=== PATIENT | male | born 2000 | race Caucasian/White ===

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

== ENCOUNTER 2022-12-22 21:08 | Emergency (ER) | payer SELFPAY ==
[2022-12-22 21:10] VITALS: BP 140/76; PULSE 104; RESP 16; TEMP 36.8; O2SAT 98; BMI 32.5
--- NOTE | 2022-12-22 21:27 | HMH.EDGENADL ---
Discharge Plan Disposition Patient Disposition: Home, Self-Care Condition: Good Chief Complaint: Extremity Injury, Upper Prescriptions Prescriptions: No Action metoclopramide HCl [Reglan] 10 mg tablet 10 mg PO Q6H PRN (Reason: nausea and vomiting) Qty: 30 3RF Rx Instructions: use sparingly cefdinir 300 mg capsule 300 mg PO BID 10 Days Qty: 20 0RF pantoprazole 40 mg tablet,delayed release (DR/EC) See Rx Instructions .ROUTE .COMPLEX Qty: 90 0RF Dose Instruction: TAKE 1 TABLET BY MOUTH ONCE DAILY FOR GASTROPARESIS Rx Instructions: TAKE 1 TABLET BY MOUTH ONCE DAILY FOR GASTROPARESIS Referrals Follow up/Referrals: Laura Null PA [Primary Care Provider] - See instructions Clinical Impressions Clinical Impression: Contusion of hand including fingers Instructions Patient Instructions: DI for Hand Pain Discharge ED Provider: Ramo Delcid General Adult HPI General Chief complaint: Extremity Injury, Upper Stated complaint: ao 12/20@2300 INJURED r HAND Time Seen by Provider: 12/22/22 21:17 Mode of Arrival: Ambulatory Source of Information: Patient Limitations: No Limitations Description of Symptoms (Recalled from ER Triage Doc. by RN): pt states that he was walking up the stairs and tripped when his boot got caught and that he fell on his right hand, had his phone in his hand and unintentionally punched the porch. the pt has redness and swelling in the right hand on the 2 last knuckles History of Present Illness HPI narrative: Patient has no significant past medical history. pt states that he was walking up the stairs and tripped when his boot got caught and that he fell on his right hand, had his phone in his hand and unintentionally punched the porch. the pt has redness and swelling in the right hand on the 2 last knuckles. Patient notes pain all day today with flexion extension of his fourth and fifth digits, thus he decided come into the ED for evaluation Related Data Previous Rx's Medication Instructions Recorded metoclopramide HCl 10 mg tablet 10 mg PO Q6H PRN nausea and 08/08/21 (Reglan) vomiting #30 tabs cefdinir 300 mg capsule 300 mg PO BID 10 days #20 caps 06/18/22 pantoprazole 40 mg tablet,delayed See Rx Instructions .Route 10/30/22 release .COMPLEX #90 tabs Allergies Allergy/AdvReac Type Severity Reaction Status Date / Time No Known Allergies Allergy Verified 06/18/22 14:39 [facility] Disclaimer: The information contained in this section may have been updated after the patient was seen, as this information can be updated by other users. Social History Smoking Status: Current every day smoker tobacco type: cigarettes packs per day: 1 alcohol intake: current substance use type: denies use current occupational status: employed Travel in the last 8 weeks: None household members: family housing: house caffeine: Yes ROS Obtained: Yes All systems reviewed & no additional complaints except as documented Physical Exam General General appearance: alert and in no apparent distress Head Head exam: atraumatic, normocephalic and normal inspection Eye Eye exam: Present normal appearance, PERRL and EOMI; Absent scleral icterus or nystagmus ENT ENT exam: Present normal exam, mucous membranes moist and normal external ear exam Neck Neck exam: Present normal inspection, full ROM and trachea midline Chest Chest inspection: Present normal inspection and symmetric chest wall rise; Absent tenderness Respiratory Respiratory exam: Present normal lung sounds bilaterally; Absent respiratory distress, wheezes or accessory muscle use Cardiovascular Cardiovascular exam: Present regular rate, normal rhythm and normal heart sounds Abdominal Exam Abdominal exam: Present soft; Absent distention, tenderness, guarding, rebound, rigidity, trauma, ascites or pulsatile mass exam: Present deferred Ex
--- NOTE | 2022-12-22 21:28 | XR_ITS ---
PROCEDURE INFORMATION: Exam: XR Right Hand Exam date and time: 12/22/2022 9:31 PM Age: 22 years old Clinical indication: Finger(s); Right; Patient HX: Pain in ring finger and pinky; Additional info: Right hand injury TECHNIQUE: Imaging protocol: Radiologic exam of the right hand. Views: 3 or more views. COMPARISON: No relevant prior studies available. FINDINGS: Bones/joints: No acute fracture or malalignment. Soft tissues: Unremarkable. IMPRESSION: No acute findings.
--- NOTE | 2022-12-22 22:19 | PC.NURSE ---
pt assessed sitting on stretcher alert, responsive no complaints nor requests at this time
[2022-12-22 22:38] VITALS: BP 123/72; PULSE 85; RESP 20; O2SAT 98
[2022-12-22 22:39] VITALS: BP 123/72; PULSE 86; RESP 16; TEMP 36.8; O2SAT 98
== END 2022-12-22 22:50 | disposition home or self-care (01) ==
PROVIDERS: Emergency Provider Emergency Medicine; PCP Physician Assistant
DX: S60.221A Contusion of right hand, initial encounter (principal); W01.198A Fall on same level from slipping, tripping and stumbling with subsequent striking against other object, initial encounter; F17.210 Nicotine dependence, cigarettes, uncomplicated
CPT/HCPCS: 73130; 99283

== ENCOUNTER 2023-01-12 05:37 | Emergency (ER) | payer SELFPAY ==
[2023-01-12] VITALS (7 sets, daily range): BP systolic 112–151; BP diastolic 55–85; PULSE 63–105; RESP 16–20; TEMP 36.3–36.7; O2SAT 96–100; BMI 33.9
--- NOTE | 2023-01-12 05:48 | PC.NURSE ---
in room talking with patient at this time.
--- NOTE | 2023-01-12 05:49 | PC.NURSE ---
pt alert,oriented, vss. md at bedside evaluating
--- NOTE | 2023-01-12 05:49 | [facility].EDGENADL ---
Discharge Plan Disposition Patient Disposition: Home, Self-Care Condition: Good Prescriptions Prescriptions: No Action No Known Home Medications Referrals Follow up/Referrals: Laura Null PA [Primary Care Provider] - See instructions Clinical Impressions Clinical Impression: Marijuana intoxication Instructions Patient Instructions: DI for Drug Overdose in Adults Discharge ED Provider: Bertha Hamilton Adult HPI <Bertha Hamilton DO - Last Filed: 01/12/23 06:53> General Chief complaint: Overdose Stated complaint: Delta 8 pen heart racing,throat closing Time Seen by Provider: 01/12/23 05:47 History of Present Illness HPI narrative: This patient is a 22-year-old male who denies significant past medical history presenting to the emergency department for evaluation after trying a delta 8 pen for the first time. He states that he feels like his heart is racing, his throat is dry, he is having a hard time catching his breath, and he feels very anxious. He states that he took approximately 8-10 hits of the pen, as he did not feel anything at first. This happened 1 hour prior to arrival. He states that he was feeling fine prior to that, but also had been drinking alcohol and using his nicotine vape. He denies any other concerns or complaints at this time. Related Data Home Medications Medication Instructions Recorded Confirmed No Known Home Medications 01/12/23 01/12/23 Allergies Allergy/AdvReac Type Severity Reaction Status Date / Time No Known Allergies Allergy Verified 06/18/22 14:39 PFSH <Bertha Hamilton DO - Last Filed: 01/12/23 06:53> PFS Disclaimer: The information contained in this section may have been updated after the patient was seen, as this information can be updated by other users. Social History Smoking Status: Current every day smoker tobacco type: cigarettes packs per day: 1 alcohol intake: current substance use type: denies use current occupational status: employed Travel in the last 8 weeks: None household members: family housing: house caffeine: Yes <Bertha Hamilton DO - Last Filed: 01/12/23 06:53> ROS Obtained: Yes All systems reviewed & no additional complaints except as documented Physical Exam <Bertha Hamilton DO - Last Filed: 01/12/23 06:53> General General appearance: alert and anxious Comment: Very anxious appearing, hyperventilating. Head Head exam: atraumatic and normocephalic Eye Eye exam: Present normal appearance, PERRL and EOMI ENT ENT exam: Present normal exam, normal oropharynx, mucous membranes moist and normal external ear exam Neck Neck exam: Present normal inspection, full ROM and trachea midline; Absent tenderness Chest Chest inspection: Present normal inspection and symmetric chest wall rise; Absent tenderness Respiratory Respiratory exam: Present normal lung sounds bilaterally; Absent respiratory distress, wheezes, stridor or accessory muscle use Cardiovascular Cardiovascular exam: Present normal rhythm and tachycardia Abdominal Exam Abdominal exam: Present soft; Absent distention, tenderness or guarding Extremities Exam Extremities exam: Present normal inspection, full ROM and normal capillary refill; Absent tenderness or edema Back Exam Back exam: Present normal inspection and full ROM; Absent tenderness Neurological Exam Neurological exam: Present alert, oriented X3, CN II-XII intact and normal gait; Absent motor sensory deficit Psychiatric Psychiatric exam: Present anxious Skin Skin exam: Present warm and dry Medical Decision Making <Bertha Hamilton, DO - Last Filed: 01/12/23 06:53> Medical Records Medical records reviewed: Yes I reviewed the patient's medical records. Rell Inquiry Pt receiving controlled substance: No Vital Signs: 01/12/23 05:40 01/12/23 06:00 01/12/23 06:31 Temperature 97.4 F L Temperature Source Oral Pul
--- NOTE | 2023-01-12 05:53 | ECG_ITS ---
APPROVED REPORT Exam: Resting ECG HR:111 bpm ECG Measurements Heart Rate 111 AXES SD 116 P 62 QRSd 96 QRS 80 QT 357 T 19 QTc 422 Conclusion SINUS TACHYCARDIA WITH SHORT SD INTERVAL NONSPECIFIC T-WAVE ABNORMALITY ABNORMAL RHYTHM ECG UNCONFIRMED REPORT Electronically signed by : Nghia Henning MD 01/12/2023 20:01:22
--- NOTE | 2023-01-12 06:06 | PC.NURSE ---
assisted patient with finding a position of comfort.
--- NOTE | 2023-01-12 06:50 | PC.NURSE ---
in room talking with patient at this time.
--- NOTE | 2023-01-12 07:21 | PC.NURSE ---
pt sleeping at this time, vss
== END 2023-01-12 08:20 | disposition home or self-care (01) ==
PROVIDERS: Emergency Provider Emergency Medicine; PCP Physician Assistant
DX: T40.711A Poisoning by cannabis, accidental (unintentional), initial encounter (principal); R00.0 Tachycardia, unspecified; F41.9 Anxiety disorder, unspecified; F17.210 Nicotine dependence, cigarettes, uncomplicated
CPT/HCPCS: 93005; 99284